=== PATIENT | male | born 2005 | race Caucasian/White ===

== ENCOUNTER 2023-02-25 06:30 | Emergency (ER) | payer BC ==
[2023-02-25] MEDS: Morphine 4 MG/ML VIAL IVPUSH ONE (06:53)
[2023-02-25] MEDS: Ondansetron 4 MG/2 ML SDV IVPUSH ONE (06:54)
[2023-02-25 07:07] LABS: BASOPHILS PERCENT AUTO 0.4 % (0.3-3.8); EOSINOPHILS PERCENT AUTO 0.6 % (0.1-6.8); HEMATOCRIT 46.8 % (38.3-50.1); HEMOGLOBIN 16.5 g/dL (12.9-17.7); LYMPHOCYTES ABSOLUTE AUTO 1.1 x10-3/uL (0.5-4.5); LYMPHOCYTES PERCENT AUTO 16.4 % (15.8-45.3); MEAN CORPUSCULAR HEMOGLOBIN 31.3 pg (27.0-33.3); MEAN CORPUSCULAR HGB CONC 35.3 g/dL (28.7-35.3); MEAN CORPUSCULAR VOLUME 88.8 fL (80.8-98.7); MONOCYTES ABSOLUTE AUTO 0.3 x10-3/uL (0.0-1.2); MONOCYTES PERCENT AUTO 4.8 % (5.5-15.2); NEUTROPHILS ABSOLUTE AUTO 5.2 x10-3/uL (1.7-6.9); NEUTROPHILS PERCENT AUTO 77.8 % (40.3-71.8); PLATELET COUNT,PLT 261 x10(3)uL (117-477); RED BLOOD CELL COUNT 5.27 x10(6)uL (3.90-5.90); RED CELL DISTRIBUTION WIDTH 13.3 % (12.4-15.0); WHITE BLOOD CELL COUNT,WBC 6.7 x10-3/uL (3.2-10.1)
[2023-02-25 07:22] LABS: BLOOD UREA NITROGEN,BUN 15 mg/dL (7-18); BUN/CREATININE RATIO 12.5 (9-20); CALCIUM 9.8 mg/dL (8.6-10.2); CARBON DIOXIDE,CO2 26 mmol/L (21-32); CHLORIDE,CL 101 mmol/L (100-110); CREATININE 1.2 mg/dL (0.70-1.30); ESTIMATED GFR 89 mL/min (>60); GLUCOSE RANDOM 139 mg/dL (80-116); SODIUM,NA 140 mmol/L (135-145)
[2023-02-25 07:28] LABS: A/G RATIO 1.1; ALANINE AMINOTRANSFERASE,ALT 35 U/L (12-36); ALBUMIN 4.5 g/dL (3.5-5.2); ALKALINE PHOSPHATASE 81 IU/L (56-112); ASPARTATE AMNIOTRANSFERASE,AST 23 IU/L (5-25); BILIRUBIN TOTAL 0.8 mg/dL (0.1-1.3); PROTEIN TOTAL,TP 8.5 g/dL (6.0-8.0)
[2023-02-25] MEDS: Sodium Chloride 0.9% 1,000 ML IV SCH (07:44)
[2023-02-25] MEDS: Ketorolac 30 MG/ML SDV IVPUSH ONE (08:14)
== END 2023-02-25 08:27 | disposition home or self-care (01) ==
LOC: FB.ED 06:30 → EDBD 06:30 → FB.ED 08:27
DX: N13.2 Hydronephrosis with renal and ureteral calculous obstruction (principal)
CPT/HCPCS: 36415; 74176; 80053; 85025; 96361; 96374; 96375; 99283; 99284-25; J1885; J2270; J2405; J7030

== ENCOUNTER 2023-03-05 13:12 | Emergency (ER) | payer BC ==
[2023-03-05] MEDS ORDERED: Acetaminophen/oxyCODONE 325-5 MG Tab PO ONE (13:13)
[2023-03-05] MEDS ORDERED: Ketorolac 30 MG/ML SDV IM STA (13:35)
[2023-03-05] MEDS ORDERED: Cyclobenzaprine 10 MG Tab PO ONE (13:35)
[2023-03-05] MEDS ORDERED: Acetaminophen/oxyCODONE 325-5 MG Tab PO STA (13:35)
[2023-03-05] MEDS ORDERED: Ondansetron 4 MG Tab.DIS PO STA (13:35)
== END 2023-03-05 14:25 | disposition home or self-care (01) ==
LOC: FB.ED 13:12
DX: N20.0 Calculus of kidney (principal)
CPT/HCPCS: 96372; 99283; A9270; J1885; Q0162

== ENCOUNTER 2023-03-07 21:39 | Emergency (ER) | payer BC ==
[2023-03-07] MEDS ORDERED: Acetaminophen/oxyCODONE 325-5 MG Tab PO ONE (21:40)
[2023-03-07] MEDS ORDERED: Ketorolac 30 MG/ML SDV IM ONE (22:04)
[2023-03-07] MEDS ORDERED: Ondansetron 4 MG Tab.DIS PO ONE (22:04)
[2023-03-07 22:26] LABS: BILIRUBIN,URINE NEGATIVE (NEGATIVE); GLUCOSE,URINE NORMAL (NORMAL); KETONES,URINE 15 mg/dL (NEGATIVE); LEUKOCYTE ESTERASE,URINE MODERATE (NEGATIVE); NITRITE,URINE NEGATIVE (NEGATIVE); OCCULT BLOOD,URINE LARGE (NEGATIVE); PROTEIN,URINE NEGATIVE (NEGATIVE); UROBILINOGEN,URINE NORMAL (NEGATIVE)
[2023-03-07 22:28] LABS: BASOPHILS PERCENT AUTO 0.3 % (0.3-3.8); EOSINOPHILS ABSOLUTE AUTO 0.1 x10-3/uL (0.0-0.6); EOSINOPHILS PERCENT AUTO 1.6 % (0.1-6.8); HEMATOCRIT 43.5 % (38.3-50.1); HEMOGLOBIN 15.3 g/dL (12.9-17.7); LYMPHOCYTES ABSOLUTE AUTO 1.3 x10-3/uL (0.5-4.5); LYMPHOCYTES PERCENT AUTO 18.1 % (15.8-45.3); MEAN CORPUSCULAR HEMOGLOBIN 31.5 pg (27.0-33.3); MEAN CORPUSCULAR HGB CONC 35.1 g/dL (28.7-35.3); MEAN CORPUSCULAR VOLUME 89.7 fL (80.8-98.7); MEAN PLATELET VOLUME 8.1 fL (6.7-11.0); MONOCYTES ABSOLUTE AUTO 0.6 x10-3/uL (0.0-1.2); MONOCYTES PERCENT AUTO 8.3 % (5.5-15.2); NEUTROPHILS ABSOLUTE AUTO 5.3 x10-3/uL (1.7-6.9); NEUTROPHILS PERCENT AUTO 71.7 % (40.3-71.8); PLATELET COUNT,PLT 231 x10(3)uL (117-477); RED BLOOD CELL COUNT 4.85 x10(6)uL (3.90-5.90); WHITE BLOOD CELL COUNT,WBC 7.5 x10-3/uL (3.2-10.1)
[2023-03-07 22:29] LABS: APPEARANCE,URINE CLEAR (CLEAR); BACTERIA,URINE FEW (NS); COLOR,URINE YELLOW (YELLOW); RBC,URINE 20-30 (0-5); SQUAMOUS EPITHELIAL CELLS,UR FEW (NS,R,O); WBC,URINE 0-5 (0-5)
[2023-03-07 22:31] LABS: BLOOD UREA NITROGEN,BUN 12 mg/dL (7-18); BUN/CREATININE RATIO 7.1 (9-20); CALCIUM 9.2 mg/dL (8.6-10.2); CARBON DIOXIDE,CO2 27 mmol/L (21-32); CHLORIDE,CL 101 mmol/L (100-110); CREATININE 1.7 mg/dL (0.70-1.30); EST CRCL DRUG DOSING (CG) 67.06 mL/min; ESTIMATED GFR 58 mL/min (>60); GLUCOSE RANDOM 97 mg/dL (80-116); POTASSIUM,K 3.4 mmol/L (3.5-5.3); SODIUM,NA 138 mmol/L (135-145)
[2023-03-07 22:37] LABS: C-REACTIVE PROTEIN 5.5 mg/dL (0.5-0.9)
[2023-03-07 22:38] LABS: A/G RATIO 1.1; ALANINE AMINOTRANSFERASE,ALT 29 U/L (12-36); ALKALINE PHOSPHATASE 71 IU/L (56-112); ASPARTATE AMNIOTRANSFERASE,AST 14 IU/L (5-25); BILIRUBIN TOTAL 0.7 mg/dL (0.1-1.3); PROTEIN TOTAL,TP 7.7 g/dL (6.0-8.0)
[2023-03-07] MEDS ORDERED: Morphine 4 MG/ML VIAL IVPUSH ONE (22:59)
[2023-03-07] MEDS ORDERED: Sodium Chloride 0.9% 1,000 ML IV ONE (22:59)
== END 2023-03-08 01:25 | disposition home or self-care (01) ==
LOC: FB.ED 21:39
DX: N13.2 Hydronephrosis with renal and ureteral calculous obstruction (principal); R79.82 Elevated C-reactive protein (CRP); Z79.899 Other long term (current) drug therapy
CPT/HCPCS: 36415; 74176; 80053; 81001; 83690; 85025; 86140; 96361; 96372; 96374; 99284; A9270; J1885; J2270; J7030; Q0162